=== PATIENT | female | born 1970 | race Asian ===

== ENCOUNTER 2022-07-30 09:52 | Emergency (ER) | payer OTHER ==
[~2022-07-30] VITALS: Ht 157.5 cm; Wt 63.5 kg
--- NOTE | 2022-07-30 09:52 | NUR ---
BIBA BLS TO ER BED 3
[2022-07-30 09:53] VITALS: BP 140/72
--- NOTE | 2022-07-30 10:10 | NUR ---
XRAY AT BEDSIDE
--- NOTE | 2022-07-30 10:19 | NUR ---
MD COOK AT BEDSIDE FOR EVALUATION
--- NOTE | 2022-07-30 10:23 | NUR ---
pt wheelchair assisted to restroom
--- NOTE | 2022-07-30 10:42 | NUR ---
52YO FEMALE PT BIBA FROM [facility] C/O ACHING 10/10 L FOOT PAIN X1HOUR. PT STATES HAVING MECHANICAL FALL WHILE HIKING CAUSING HER TO ROLL ANKLE. DENIES INJURY TO HEAD OR LOC. MILD BRUISED NO PITTING SWELLING NOTED FROM ANKLE - BELOW . TENDER TO TOUCH, CAP REFILL <3 THROUGHOUT. STATES PAIN AT MOST WHEN BEARING WEIGHT. PT AAOX4, NO VISIBLE DISTRESS. RESPIRATIONS EVEN AND UNLABORED. HX:HTN NKA
--- NOTE | 2022-07-30 10:56 | NUR ---
consent form for conscious sedation signed by pt . pt on residential monitor.
[2022-07-30] MEDS ORDERED: PROPOFOL 200 MG/20 ML VIAL IV ONE (11:25)
[2022-07-30] MEDS ORDERED: fentaNYL citrate 0.05 MG/ML VIAL IVP ONE (11:25)
--- NOTE | 2022-07-30 12:31 | NUR ---
TIME OUT FOR REDUCTION OF LEFT FOOT BY DR COOK
--- NOTE | 2022-07-30 12:45 | NUR ---
PT AOX4 BACK TO BASELINE. DENIES PAIN OR DISCOMFORT. BREATHING UNLABORED. SPLINT PLACED DURING PROCEDURE. PENDING XRAY.
[2022-07-30] MEDS ORDERED: ACET-8386 PO ×2 (13:06→13:32)
[2022-07-30] MEDS ORDERED: ACET-9525 PO (13:07)
[2022-07-30 13:45] VITALS: BP 138/78
--- NOTE | 2022-07-30 13:50 | NUR ---
IV removed, catheter intact and site benign. Applied folded 4x4 gauze and tape to stop bleeding.
--- NOTE | 2022-07-30 13:54 | NUR ---
Patient discharged with v/s stable. Written and verbal after care instructions FOR ANKLE FRACTURE given and explained. Patient alert, oriented and verbalized understanding of instructions. Wheel Chair Assisted with to car. All questions addressed prior to discharge. ID band removed. Patient advised to follow up with PMD. Rx of HYDROCODONE/ACETAMINOPHEN given. Opportunity to ask questions provided and answered.
--- NOTE | 2022-07-30 14:04 | NUR ---
The patient's care was reviewed and supervised by ED Agency Nurse 9, RN, RN.
--- NOTE | 2022-08-01 10:12 | NUR ---
LATE ENTRY-DIPRIVAN GIVEN -NADR
== END 2022-07-30 13:54 | disposition home or self-care (01) ==
LOC: MED 09:52
DX: S82.842A Displaced bimalleolar fracture of left lower leg, initial encounter for closed fracture (principal); W18.30XA Fall on same level, unspecified, initial encounter; Y93.89 Activity, other specified; Y92.89 Other specified places as the place of occurrence of the external cause; Y99.8 Other external cause status
CPT/HCPCS: 27840; 73610; 73630; 96374; 99291; G0500; J2704; J3010